=== PATIENT | male | born 1975 | race Hispanic/Latino ===

== ENCOUNTER → 2018-05-16 | Outpatient (CLI) | payer OTHER ==
[~2018-05-16] VITALS: Ht 172.7 cm; Wt 64.0 kg
[~2018-05-16] MED LIST: AMLO10TA7 PO; ASPI-555 PO; EZET10TA26 PO; HYDR-4154 PO; HYDR12.54 PO; INSLAN SQ; LISI40TA4 PO; METO25TA6 PO; NITR0.4T50 SL; ROSU5TAB11 PO
[2018-05-16 14:53] VITALS: BP 134/69
[2018-05-16 15:02] LABS: APPEARANCE,URINE Clear (CLEAR); BILIRUBIN,URINE Negative (NEGATIVE); COLOR,URINE Dark Yellow (YELLOW); GLUCOSE, URINE (UA) Negative (NEGATIVE); KETONES,URINE Negative (NEGATIVE); LEUKOCYTE ESTERASE ,URINE Negative (NEGATIVE); NITRATE,URINE Negative (NEGATIVE); OCCULT BLOOD,URINE Negative (NEGATIVE); PH,URINE 5.5 (5.0-8.0); PROTEIN,URINE POS 2+ (NEGATIVE); UROBILINOGEN,URINE 0.2 mg/dL (0.2-1.0)
[2018-05-16 15:13] LABS: INR 0.9 (0.85-1.15); PARTIAL THROMBOPLASTIN TIME 27.2 SEC (26.3-35.5); PROTHROMBIN TIME 9.5 SEC (9.6-11.6)
[2018-05-16 15:17] LABS: POTASSIUM 5.3 mmol/L (3.5-5.1)
[2018-05-16 15:31] LABS: BASOPHILS % (AUTO) 0.4 % (0.0-5.0); EOSINOPHILS % (AUTO) 2.7 % (0.0-8.0); HEMATOCRIT 33.9 % (42-54); LYMPHOCYTES % (AUTO) 22.7 % (21.0-51.0); MEAN CORPUSCULAR HEMOGLOBIN 30.8 pg (27.0-33.0); MEAN CORPUSCULAR HGB CONC 33.7 g/dL (32.0-36.0); MEAN CORPUSCULAR VOLUME 91.4 fL (79-99); MONOCYTES % (AUTO) 11.4 % (3.0-13.0); NEUTROPHILS % (AUTO) 62.8 % (40.0-77.0); NUCLEATED RED BLOOD CELLS 0.1 % (0.0-0.19); PLATELET COUNT (AUTO) 212 K/uL (130-400); RED BLOOD CELL COUNT(AUTO) 3.71 MIL/uL (4.50-6.20); WHITE BLOOD COUNT (AUTO) 7.9 K/uL (4.8-10.8)
[2018-05-16 15:38] LABS: BACTERIA,URINE Few /HPF (None Seen); RBC,URINE 0-1 /HPF (0-1); SQUAMOUS EPITHELIAL CELL,UR Rare /HPF (0-2); WBC,URINE 0-1 /HPF (0-1)
--- NOTE | 2018-05-16 15:45 | NUR ---
LABS ELEVATED BUN/CREA REPORTED TO DR MONSALVE PER REQUEST FAX LABS TO HIS OFFICE. AWAITING FOR FURTHER ORDERS Addendum: 05/16/18 at 1547 by PRUDENCIO JULIO RN Amended: Links added.
--- NOTE | 2018-05-16 16:05 | NUR ---
LABS RECEIVED CALL BACK FROM DR. MONSALVE CANCEL HEART CATH DUE TO ELEVATED BUN/CREA, PT WILL CALL DR. MONSALVE OFFICE TO FOLLOW UP, [place] [employer]ORY[employer] ARTIST NOTIFIED
== END ==
LOC: EDSTATUS 14:00 → DAH 14:30
PROVIDERS: ATTEND Internal Medicine Cardiovascular Disease
DX: Z01.818 Encounter for other preprocedural examination (principal); I20.8 Other forms of angina pectoris; Z79.01 Long term (current) use of anticoagulants
CPT/HCPCS: 36415; 71045; 80048; 81001; 85025; 85610; 85730; 93005

== ENCOUNTER → 2023-07-19 | Outpatient (CLI) | payer MEDICARE ==
[~2023-07-19] MED LIST changes: +AMLO-258 PO; -AMLO10TA7 PO; -ASPI-555 PO; +ASPI-556 PO; -EZET10TA26 PO; +EZET10TA48 PO; -HYDR-4154 PO; +HYDR50TA37 PO; -LISI40TA4 PO; +LISI40TA9 PO; -ROSU5TAB11 PO; +ROSU5TAB12 PO
[2023-07-19 08:30] LABS: INR 0.96 (0.85-1.15); PROTHROMBIN TIME 11.4 SEC (9.6-11.6)
[2023-07-19 08:31] LABS: PARTIAL THROMBOPLASTIN TIME 28.9 SEC (26.3-35.5)
== END | disposition home or self-care (01) ==
LOC: RAH 07:50
PROVIDERS: ATTEND Otolaryngology Plastic Surgery within the Head & Neck
DX: Z01.812 Encounter for preprocedural laboratory examination (principal); R22.1 Localized swelling, mass and lump, neck
CPT/HCPCS: 76536; 85610; 85730